=== PATIENT | male | born 1935 | race Caucasian/White ===

== ENCOUNTER 2018-04-05 19:09 | Inpatient (IN) | payer OTHER ==
[~2018-04-05] VITALS: Ht 177.8 cm; Wt 115.2 kg
[2018-04-05 19:10] VITALS: BP 124/75
[2018-04-05] MEDS ORDERED: COZAAR 50 MG TA50 M2 (19:23)
[2018-04-05] MEDS ORDERED: LASIX 40 MG TAB40 M2 (19:23)
[2018-04-05] MEDS ORDERED: LOPRESSOR100 M1 (19:23)
[2018-04-05] MEDS ORDERED: POTASSIUM20 PO (19:24)
[2018-04-05 19:45] LABS: ABSOLUTE BASOPHILS 0.1 thou/uL (0.0-0.2); ABSOLUTE EOSINOPHILS 0.2 thou/uL (0.0-0.7); ABSOLUTE LYMPHOCYTES 2.6 thou/uL (0.8-5.3); ABSOLUTE MONOCYTES 1.5 thou/uL (0.0-1.2); ABSOLUTE NEUTROPHILS 5.2 thou/uL (1.6-8.1); BASOPHILS 0.8 %; EOSINOPHILS 2.1 %; HEMATOCRIT 38.6 % (42.0-52.0); HEMOGLOBIN 12.9 gm/dL (14.0-18.0); LYMPHOCYTES 27.3 %; MCH 32.7 pg (26.0-34.0); MCHC 33.5 g/dL (28.0-37.0); MCV 97.8 fL (80.0-100.0); MONOCYTES 15.9 %; MPV 7.7 fl. (7.2-11.1); NUCLEATED RBCS 0 /100WBC; PLATELET COUNT* 238 thou/uL (150-400); POLYS 53.9 %; RBC 3.95 mil/uL (4.50-6.00); RDW-CV 15.4 % (10.5-14.5); WBC 9.6 thou/uL (4.0-11.0)
[2018-04-05 19:50] LABS: ANION GAP 12 mmol/L (7-16); BUN 28 mg/dL (7-18); CALCIUM 8.4 mg/dL (8.5-10.1); CHLORIDE 102 mmol/L (98-107); CO2 26 mmol/L (21-32); CREATININE 2.2 mg/dL (0.6-1.3); GLUCOSE 82 mg/dL (70-99); POTASSIUM 3.8 mmol/L (3.5-5.1); SODIUM 140 mmol/L (136-145)
[2018-04-05 20:01] LABS: ALBUMIN 3.1 g/dL (3.4-5.0); ALKALINE PHOSPHATASE 88 U/L (46-116); LIPASE 189 U/L (73-393); NT-PRO BRAIN NAT PEPTIDE 4473 pg/mL (<300); SGOT 29 U/L (15-37); SGPT 40 U/L (30-65); TOTAL BILIRUBIN 0.2 mg/dL (<0.1-1.0); TOTAL PROTEIN 6.3 g/dL (6.4-8.2); TROPONIN-I LEVEL <0.06 ng/mL (<0.06)
[2018-04-06] VITALS (7 sets, daily range): BP systolic 125–189; BP diastolic 56–99
[2018-04-06] MEDS ORDERED: DEMADEX20 MG PO (00:55)
[2018-04-06] MEDS ORDERED: GLIPIZIDE 10 MG10 MG PO (00:56)
[2018-04-06] MEDS ORDERED: CARDIZEM CD240 MG PO (00:57)
[2018-04-06] MEDS ORDERED: LANTUS100 UNIT/M SUBQ (00:59)
[2018-04-06 02:36] LABS: URINE BILIRUBIN NEGATIVE (Negative); URINE BLOOD NEGATIVE (Negative); URINE CLARITY CLEAR; URINE COLOR YELLOW; URINE GLUCOSE-RANDOM NEGATIVE (Negative); URINE KETONES NEGATIVE (Negative); URINE LEUKOCYTES-REFLEX NEGATIVE (Negative); URINE NITRITE-REFLEX NEGATIVE (Negative); URINE PROTEIN 3+ (Negative); URINE SPECIFIC GRAVITY 1.025 (1.005-1.030); URINE UROBILINOGEN 0.2 E.U./dl (0.2-1.0)
[2018-04-06 02:56] LABS: AMP/METHAMP Negative (Negative); BARBITURATES Negative (Negative); BENZODIAZEPINES POSITIVE (Negative); COCAINE Negative (Negative); METHADONE Negative (Negative); OPIATES Negative (Negative); PCP Negative (Negative); THC Negative (Negative)
[2018-04-06 03:52] LABS: HYALINE CASTS 4-10 Moderate /LPF (None Seen); MUCUS 0-3 Light strn/LPF (None Seen); SQUAMOUS 0-3 Few /LPF (0-3); URINE RBC None Seen /HPF (0-2); URINE WBC-REFLEX 0-5 Rare /HPF (0-5)
[2018-04-06 03:53] LABS: BACTERIA-REFLEX None Seen /HPF (None Seen); CRYSTALS None Seen /LPF (None Seen)
[2018-04-06 05:04] LABS: HEMOGLOBIN 13.1 gm/dL (14.0-18.0); MCH 32.4 pg (26.0-34.0); MCHC 32.8 g/dL (28.0-37.0); MPV 7.8 fl. (7.2-11.1); RBC 4.04 mil/uL (4.50-6.00); RDW-CV 15.4 % (10.5-14.5); WBC 7.4 thou/uL (4.0-11.0)
--- NOTE | 2018-04-06 05:07 | NUR ---
ASSUMED CARE AT 0030, ADMISSION CHARTED. PATIENT ALERT/ORIENTED X4, RESTING IN BED. PLACED ON TELE, AFIB. WEARING OXYGEN 2L/NC, SATS 95%. HOME CPAP PLACED ON PER RT. IVF INFUSING PER MAR. UP WITH ASSIST. VOIDING PER URINAL. REFUSING SCD'S. BED ALARM ON. CALL LIGHT WITHIN REACH, ENCOURAGED TO CALL FOR NEEDS.
[2018-04-06 05:14] LABS: ALBUMIN 2.9 g/dL (3.4-5.0); ALKALINE PHOSPHATASE 87 U/L (46-116); AMMONIA < 10 umol/L (11-32); ANION GAP 6 mmol/L (7-16); BUN 26 mg/dL (7-18); CHLORIDE 106 mmol/L (98-107); CO2 29 mmol/L (21-32); CREATININE 1.9 mg/dL (0.6-1.3); GLUCOSE 99 mg/dL (70-99); PHOSPHORUS* 4.2 mg/dL (2.5-4.9); SGOT 30 U/L (15-37); SGPT 37 U/L (30-65); SODIUM 141 mmol/L (136-145); TOTAL BILIRUBIN 0.2 mg/dL (<0.1-1.0)
[2018-04-06 05:17] LABS: POTASSIUM 4.8 mmol/L (3.5-5.1)
--- NOTE | 2018-04-06 08:00 | NUR ---
REPORT GIVEN TO ONCOMING NURSE. PATIENT RESTING IN BED. WILL MONITOR.
--- NOTE | 2018-04-06 09:40 | NUR ---
RECEIVED REPORT FROM EDUARDO AND ASSUMED CARE OF PT @ 0283.PT IS A/O,VSS,TRACING AFIB ON THE MONITOR.LUNG SOUNDS ARE CLEAR.LAST BM WAS YESTERDAY.IV LEFT WRIST PATENT WITH FLUIDS INFUSING PER ORDERS.CIWA SCREENING COMPLETED.PT IS CLAM AND COOPERATIVE WITH NO C/O PAIN AT TIME OF ASSESSMENT.PT IS UP WITH ONE ASSIST TO BATHROOM.PT LEFT RESTING BED WITH CALL LIGHT AND FALL PRECAUTIONS IN [place]. WILL CONTINUE TO MONITOR.PT WAITING FOR DIAGNOSTIV TESTING THIS AM.
--- NOTE | 2018-04-06 12:03 | EKG ---
[place] [address] ELECTROCARDIOGRAM REPORT Name: STEVENSON PENA Room: [address] ADM IN [facility].#: [id number] Admission: 04/05/18 Attend Phys: Araceli Warren Discharge: Date of : 35 Report #: [id number] THIS REPORT FOR: //name// [facility] ED Test Date: 2018-04-05 Test Time: 19:21:36 Pat Name: STEVENSON PENA Department: Room: [facility] Gender: M [employer] Usher: : 1935 Requested By: Neelam Stuart Order Number: [id number] MD: Horace Morgan Measurements Intervals [place] Rate: 67 P: OR: QRS: 37 QRSD: 131 T: 56 QT: 429 QTc: 453 Interpretive Statements Atrial fibrillation IVCD, consider atypical RBBB Anterior infarct, old No previous ECG available for comparison Electronically Signed On 04-06-2018 12:02:57 CDT by Horace Morgan [email or web address] <ELECTRONICALLY SIGNED> By: Horace Morgan MD, [facility] 04/06/18 1202 20 20 Horace Morgan MD, [facility] /EPI
[2018-04-06 13:08] LABS: T7 1.4 (1.2-4.9)
--- NOTE | 2018-04-06 15:49 | NUR ---
Pt is A&O. Resides in a RV with his . Normally independent. Sleeps with a cpap at night. No hx of HH or Snf. Goal is home at mt. Following.
--- NOTE | 2018-04-06 18:31 | NUR ---
VSS,CARDIAC MONITORING IN PLACE WITH NO CHANGES.PT REMAINS ON 2L O2 NC.NO C/O PAIN.IVF FLUIDS INFUSING PER ORDERS.CIWA SCREENINGS COMPLETED.PT PROGRESSING TOWARDS GOALS.INFORMED OF PLAN OF CARE AND COMMUNICATES UNDERSTANDING.HOURLY ROUNDING COMPLETED FOR PT SAFETY.CALL LIGHT AND FALL PRECAUTIONS IN PLACE.WILL CONTINUE TO MONITOR FOR DURATION OF SHIFT.
[2018-04-07] VITALS (7 sets, daily range): BP systolic 145–189; BP diastolic 58–84
--- NOTE | 2018-04-07 06:46 | NUR ---
PATIENT RESTED THROUGH THE NIGHT. UP WITH ASSIST TO BSC. DENIES PAIN OR NEEDS. CIWA CHARTED. BED ALARM ON. CALL LIGHT WITHIN REACH, ENCOURAGED TO CALL FOR NEEDS.
--- NOTE | 2018-04-07 08:30 | NUR ---
RECEIVED REPORT FROM EDUARDO AND ASSUMED CARE OF PT @ 5862.PT IS A/O,VSS,TRACING AFIB ON THE MONITOR.LUNG SOUNDS ARE CLEAR.LAST BM WAS YESTERDAY.PT IV LEFT FOREARM PATENT WITH FLUIDS INFUSING PER ORDERS.PT IS CALM AND COOPERATIVE WITH NO C/O PAIN AT TIME OF ASSESSMENT.PT IS UP WITH ONE ASSIST TO BSC.PT LEFT RESTING IN BED WITH CALL LIGHT AND FALL PRECAUTIONS IN PLACE.WILL CONTINUE TO MONITOR.
--- NOTE | 2018-04-07 16:50 | 2DMMODE ---
[place] [address] 2 D/M-MODE ECHOCARDIOGRAM Name: STEVENSON PENA Room: [address] IN [facility]#: [id number] Admission: 04/05/18 Attend Phys: Betito Jules Discharge: Date of : 35 Date of Service: 04/07/18 1650 Report #: [id number] THIS REPORT FOR: //name// APPROVED REPORT Study performed: 04/07/2018 14:59:00 EXAM: Comprehensive 2D, Doppler, and color-flow Echocardiogram Patient Location: In-Patient Room #: 220 Status: routine BSA: 2.31 HR: 64 bpm BP: 175/79 mmHg Rhythm: Atrial Fibrillation Other Information Study Quality: Good Indications COPD Atrial Fibrillation Dyspnea 2D Dimensions LVEF(%): 69.23 (>50%) IVSd: 13.01 (7-11mm) LVOT Diam: 22.05 (18-24mm) LVDd: 50.14 mm PWd: 11.63 (7-11mm) Ascending Ao: 32.56 (22-36mm) LVDs: 30.56 (25-40mm) Aortic Root: 33.52 mm De La Cruz's LVEF: 69.23 % Volumes Left Atrial Volume (Systole) LA ESV Index: 69.50 mL/m2 Aortic Valve AoV Peak Ben.: 1.57 m/s AO Peak Gr.: 9.87 mmHg LVOT Max P.76 mmHg AO Mean Gr.: 5.20 mmHg LVOT Mean P.24 mmHg LVOT Max V: 0.83 m/s AO V2 VTI: 31.91 cm LVOT Mean V: 0.50 m/s ROLY (VTI): 2.19 cm2 LVOT V1 VTI: 18.32 [place] [address] 2 D/M-MODE ECHOCARDIOGRAM Name: STEVENSON PENA Room: [address] IN .R.#: [id number] Admission: 04/05/18 Attend Phys: Betito Jules Discharge: Date of : 35 Date of Service: 04/07/18 1650 Report #: [id number] Mitral Valve MV Decel. Time: 173.48 ms MV PHT: 50.31 ms MVA (PHT): 4.37 cm2 TDI Medial E' Ben.: 0.11 m/s Lateral E' Ben.: 0.14 m/s Pulmonary Valve PV Peak Ben.: 0.74 m/s PV Peak Gr.: 2.21 mmHg Tricuspid Valve RAP Estimate: 5.00 mmHg TR Peak Gr.: 34.32 mmHg RVSP: 39.32 mmHg PA Pressure: 39.32 mmHg Left Ventricle The left ventricle is normal size. There is normal LV segmental wall motion. Mild concentric left ventricular hypertrophy. Left ventricular systolic function is normal. LVEF is 55-60%. This study is not technically sufficient to allow evaluation of the LV diastolic function due to atrial fibrillation. Right Ventricle The right ventricle is normal size. The right ventricular systolic function is normal. Atria Left atrium is moderately dilated. Right atrium is mildly dilated. Aortic Valve Mild aortic valve sclerosis. No aortic regurgitation is present. There is no aortic valvular stenosis. Mitral Valve The mitral valve is normal in structure. Mild mitral regurgitation. No evidence of mitral valve stenosis. Tricuspid Valve The tricuspid valve is normal in structure. Mild tricuspid regurgitation. Mild pulmonary hypertension. Pulmonic Valve The pulmonary valve is normal in [place] [address] 2 D/M-MODE ECHOCARDIOGRAM Name: STEVENSON PENA Room: [address] IN [facility]#: [id number] Admission: 04/05/18 Attend Phys: Betito Jules Discharge: Date of : 35 Date of Service: 04/07/18 1650 Report #: [id number] regurgitation. Great Vessels The aortic root is normal in size. IVC is normal in size and collapses with >50% inspiration Pericardium There is no pericardial effusion. <Conclusion> The left ventricle is normal size. Mild concentric left ventricular hypertrophy. Left ventricular systolic function is normal. LVEF is 55-60%. Left atrium is moderately dilated. Right atrium is mildly dilated. Mild aortic valve sclerosis. Mild mitral regurgitation. Mild tricuspid regurgitation. Mild pulmonary hypertension. <ELECTRONICALLY SIGNED> By: Gallito Edouard MD, FACC 04/07/181649 49 49 Gallito Edouard MD, FACC /INF
--- NOTE | 2018-04-07 18:08 | NUR ---
VSS,CARDIAC MONITORING IN PLACE WITH NO CHANGES.PT REMAINS ON 2L O2 NC NEEDED.24 HOUR URINE CALLECTION IN PROGRESS.NO C/O PAIN.IVF INFUSING PER ORDERS.PT TO BE NPO AT MIDNIGHT FOR TESTING IN AM.PT INFORMED OF PLAN OF CARE AND COMMUNICATES UNDERSTANDING.PT REFUSED TO WORK WITH PHYSICAL THERAPY THIS AFTERNOON.PT IS UP WITH ONE ASSIST.HOURLY ROUNDING COMPLETED FOR PT SAFETY.CALL LIGHT AND FALL PRECAUTIONS IN PLACE.WILL CONTINUE TO MONITOR FOR DURATION OF SHIFT.
[2018-04-08 02:07] LABS: GLYCOHEMOGLOBIN (HGB A1C) 5.6 % (4.8-5.6)
[2018-04-08 03:42] VITALS: BP 151/75
--- NOTE | 2018-04-08 06:45 | NUR ---
PT IS ABLE TO COMMUNICATE HIS NEEDS TO STAFF WITH ONLY MINOR DIFFICULTY; HE IS [place] WHEN HIS HEARING AIDS ARE NOT IN. HE HAS DENIED THE NEED FOR PAIN MEDICATION UP TO THIS TIME. HE HAS BEEN NPO, EXCEPT FOR MEDS WITH SIPS OF WATER, FOR A STRESS TEST LATER TODAY. 24 HOUR URINE COLLECTION CURRENTLY UNDERWAY TO END AT 14:10 TODAY 04/08.
[2018-04-08 08:05] VITALS: BP 159/72
--- NOTE | 2018-04-08 08:05 | NUR ---
RECEIVED REPORT FROM SAMEER AND ASSUMED CARE OF PT @ 2677.PT IS A/O,VSS,TRACING AFIB ON THE MONITOR.LUNG SOUNDS ARE CLEAR.LAST BM WAS TODAY.IV PATENT WITH FLUIDS INFUSING PER ORDERS.PT REMAINS NPO STATUS FOR STRESS TEST.PT IS CALM AND COOPERATIVE WITH NO C/O PAIN.PT IS UP WITH ONE ASSIST.PT LEFT RESTING IN BED WITH CALL LIGHT AND FALL PRECAUTIONS IN PLACE. IV REMOVED DUE TO INFILTRATION.NEW IV INSERTED IN LEFT AC.STRESS TEST COMPLETED.
[2018-04-08 12:10] VITALS: BP 152/57
[2018-04-08] MEDS ORDERED: THIAMINE HCL100 MG PO (12:47)
[2018-04-08] MEDS ORDERED: KPN1 EACH PO (12:48)
[2018-04-08] MEDS ORDERED: CLONIDINE0.1 PO (12:49)
--- NOTE | 2018-04-08 13:28 | NUR ---
Pt discharging to home today. Pt declined HH stating "I will do all of that once I get back home to [facility]." Walker order faxed to Leticia at [facility], lissy to be delivered to the room. will transport
[2018-04-08 14:06] VITALS: BP 152/57
[2018-04-08 15:27] VITALS: BP 155/61
--- NOTE | 2018-04-08 16:35 | CARDNUC ---
[place] [address] CARDIAC NUCLEAR IMAGING REPORT Name: STEVENSON PENA Room: [address] IN [facility]#: [id number] Admission: 04/05/18 Attend Phys: Betito Jules Discharge: Date of : 35 Date of Service: 04/08/18 1635 Report #: [id number] THIS REPORT FOR: //name// APPROVED REPORT Imaging Protocol: Stress Tc-99m/Rest Tc-99m 2 days Study performed: 04/07/2018 17:49:00 Indication: Atrial Fibrillation, Dyspnea Patient Location: In-Patient Room #: 220 Stress Tech: Radha Perez Stress Nurse: Debbi Christianson RN NM Tech:LATASHA Read Ht: 5 ft 10 in Wt: 254 lbs BSA: 2.31 m2 BMI: 36.44 Medical History Medical History: Diabetes, Atrial Fibrillation, HTN, Obesity , CKD, CHF Medications: Metoprolol, Clonidine, Cardizem, Cozaar Allergies: No known drug allergies Cardiac Risk Factors: Age, DM, FHX of CAD, SOB, HTN, CKD, AFIB Exercise History: Sedentary Physical Disabilities: Legs. Feet Meds Held (24 hrs): Metoprolol Pharmacologic Stress Pharmacologic stress test was performed by injecting Regadenoson 0.4 mg IV push over 10-15 seconds immediately followed by the intravenous injection of 34.5 mCi of Tc-99m Sestamibi. Time of stress injection: 1115 Date: 04/08/2018 Time of stress imagin Administration Route: IV Gated Stress SPECT was performed 40 minutes after stress injection. The images were gated to evaluate regional wall motion and calculate left ventricular ejection fraction. Prone imaging was performed. Stress Test Details Stress Test: Pharmacologic stress testing performed using 0.4 mg of regadenoson per 5 mL given IV over 10 [place] [address] CARDIAC NUCLEAR IMAGING REPORT Name: STEVENSON PENA Room: [address]#: [id number] Admission: 04/05/18 Attend Phys: Betito Jules Discharge: Date of : 35 Date of Service: 04/08/18 1635 Report #: [id number] Reason for pharmacologic stress test: physical limitation. HR Max Heart Rate (APMHR): 138 bpm Resting HR: 55 bpm Target HR (85% APMHR): 117 bpm Max HR Achieved: 57 bpm % of APMHR: 41 Recovery HR: 65 bpm BP Resting BP: 143/70 mmHg Recovery BP: 143/64 mmHg ECG Resting ECG: Sinus Rhythm, normal EKG Stress ECG: Sinus Rhythm, normal EKG ST Change: None Arrhythmia: None Recovery ECG: Sinus Rhythm, normal EKG Recovery ST Change: None Recovery Arrhythmia: None Clinical Reason for Termination: Completed protocol Stress Symptoms: Dyspnea Exercise duration: 0 min 0 sec Exercise capacity: 1.0 METs The patient tolerated Lexiscan infusion without significant symptoms. Nurse Comments Physical limitations required a sitting Lexiscan. Patient tolerated test well. Stress ECG Conclusion The baseline 12-lead EKG shows sinus rhythm without significant ST or T wave abnormality. EKGs obtained during and post Lexiscan infusion show sinus rhythm with no significant ST or T wave changes when compared to baseline. There were no significant stress-induced arrhythmias. Study Quality Study: Good Artifact: Mild Diaphragmatic artifact Study Data Post stress, [place] [address] CARDIAC NUCLEAR IMAGING REPORT Name: STEVENSON PENA Room: [address]#: [id number] Admission: 04/05/18 Attend Phys: Betito Jules Discharge: Date of : 35 Date of Service: 04/08/18 1635 Report #: [id number] 53%.. Perfusion Post stress perfusion images obtained in the supine position show some photopenia of the inferior wall that resolves completely with post stress prone imaging. Post stress prone imaging shows uniform uptake of the radioisotope throughout the myocardium. Wall Motion Normal left ventricular wall motion. Nuclear Conclusion ECG Findings: negative for ischemia Clinical Findings: negative for ischemia Nuclear Findings: negative for ischemia Exercise Capacity: not assessed Left Ventricular Function: normal Risk Study: low Myocardial perfusion images show no defect to suggest infarct or ischemia. Left ventricular systolic function appears normal on gated studies. This is a low risk study. <Conclusion> The baseline 12-lead EKG shows sinus rhythm without significant ST or T wave abnormality. EKGs obtained during and post Lexiscan infusion show sinus rhythm with no significant ST or T wave changes when compared to baseline. There were no significant stress-induced arrhythmias. <ELECTRONICALLY SIGNED> By: Gallito Edouard MD, FACC 04/08/18 1635 1635 1635 Gallito Edouard MD, FACC /INF
--- NOTE | 2018-04-08 17:03 | NUR ---
PT STRESS TEST WAS NEGATIVE.PT OK FOR DISCHARGE.PAPERWORK COMPLETED AND GIVEN TO PT.SCRIPTS GIVEN WITH EDUCATION.IV REMOVED.HEART MONITOR REMOVED AND RETURNED TO NURSING STATION.PT REFUSED TO HAVE HOME HEALTH SET UP BUT ACCEPTED TO USE A WALKER.ALL PERSONAL BELONGINGS PACKED AND TAKEN WITH PT.WHEELED OUT BY NURSING STAFF TO PERSONAL VEHICLE.
[2018-04-08 22:13] LABS: GLOBULIN TOTAL 2.8 g/dL (2.2-3.9); M-SPIKE Not Observed g/dL (Not Observed)
[2018-04-11 16:07] LABS: URINE PROTEIN 5402 mg/24 hr (30-150); URINE PROTEIN (MG/DL) 284.3 mg/dL (Not Estab.)
--- NOTE | 2018-04-11 17:33 | EEG ---
[address] [address] EEG STUDY REPORT Name: STEVENSON PENA Room: [address] IN .#: [id number] Admission: 04/05/18 Attend Phys: Araceli Warren Discharge: 04/08/18 Date of : 35 Report #: [id number] THIS REPORT FOR: //name// CC: RUSS RUSSELL Physician staff Betito Jules DATE OF SERVICE: 04/06/2018 This patient is having episodes where he loses all his friends. EEG is being done to evaluate the possibility of seizure. The patient does drink alcohol. The patient's EEG was done by placing the electrodes by standard 10-20 system of electrode placement. Both referential and sequential montages were used for recording. Background activity in this patient's EEG is about 9 Hz and 30 microvolts. It is a symmetrical activity. Photic stimulation was unremarkable. The patient went to sleep that was associated with bilaterally symmetrical sleep spindle and vertex sharp waves. Throughout the record, no active epileptiform activity was noticed. IMPRESSION: This patient's EEG is unremarkable. Thank you very much for this referral. <ELECTRONICALLY SIGNED> By: Shaun Mckeon MD 04/11/18 1733 1109 [id number] Mckeon MD /nt
--- NOTE | 2018-04-11 17:33 | CON ---
[address] [address] CONSULTATION Name: STEVENSON PENA Room: [address] IN .R.#: [id number] Admission: 04/05/18 Attend Phys: Araceli Warren Discharge: 04/08/18 Date of : 35 Report #: [id number] THIS REPORT FOR: //name// CC: RUSS RUSSELL Physician staff Betiot Jules DATE OF SERVICE: 04/06/2018 HISTORY OF PRESENT ILLNESS: This is an 82-year-old male patient who was evaluated by me for the leg weakness. The patient provides somewhat different history to me than he provided to Emergency Room physician whose records were reviewed. He indicates he is gradually becoming weaker in the lower extremities for about 4 months. He had some dizziness associated with that. He had 2 falls associated with this. Weakness started spontaneously without any trauma. He is not complaining of much bladder problem, but he is having diarrhea. He is a diabetic, but he said he keeps his A1c under control reasonably well. REVIEW OF SYSTEMS: Positive for hypertension, diabetes, COPD. He used to smoke, but does not smoke anymore. His EKG does indicate that he has atrial fibrillation. I carried out the 14-point review of system in this patient and it is mainly positive for diabetes and hypertension. He denies he is having any visual problem. He has baseline problem with hearing, not having any active chest pain or any severe respiratory difficulty. He is not complaining of any musculoskeletal, constitutional, dermatological, hematological, psychiatric, throat, allergic symptom, which is new. He is having diarrhea, but not much bladder disturbances. PAST MEDICAL HISTORY: Positive for diabetes. FAMILY HISTORY: Negative for early age stroke. SOCIAL HISTORY: He drinks alcohol daily. PHYSICAL EXAMINATION: Indicates the patient is alert, responsive, able to follow simple command. His memory and fund of knowledge is his baseline. Speech is okay. Cranial nerve examination 2-12 appear noncontributory. The patient's strength in all 4 extremities is preserved. In fact, even in the lower extremities, it looks preserved. His position sense is intact, but his reflexes are absent. His tone looks unremarkable. His icjyck-gv-ewmk looks unremarkable. I could not look at the fundus very well. This patient has no thyroid mass. He is reasonably well-developed individual who does not have any dysmorphic features of eyes, ears and face. His pulses are palpable. He has no edema, cyanosis or jaundice. His blood pressure is 189/99, pulse is 100, temperature is 98.1. [place] [address] CONSULTATION Name: STEVENSON PENA Room: [address] IN ..#: [id number] Admission: 04/05/18 Attend Phys: Araceli Warren Discharge: 04/08/18 Date of : 35 Report #: [id number] LABORATORY DATA: Indicates a white count of 7.4. He does have a GFR of only 34. His TSH is slightly elevated. Vitamin B12 is somewhat on the lower side at 259. He did have an MRI of the brain, which showed no acute stroke. His MRA of the [place] of [place] is mostly unremarkable. 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 Neuropathy may be secondary to diabetes or alcoholism. We will exclude some other cause. I will ask physical therapy to ambulate and see how he does with that. He is already on thiamine. It is unlikely that it was anything neurological, especially because the MRI and MRA looks unremarkable. He needs an EMG, but we cannot do it in the hospital as we do not have the machine. We will see how he does with the physical therapy and depending upon that, we may have to work up his spine either as an inpatient or as an outpatient. RECOMMENDATIONS: 1. PT evaluation. 2. Neuropathy panel. 3. He must stop drinking alcohol. 4. We will see how he does with PT, OT and may do some more spine workup starting with lumbar and thoracic spine MRI and doing further workup as indicated later on. All of it was discussed with the patient and he wants to follow up plan. <ELECTRONICALLY SIGNED> By: Shaun Mckeon MD 04/11/18 1733 1611 [id number] Mckeon MD /nt
[2018-04-11 19:11] LABS: ANA INTERPRETATION Negative (())
== END 2018-04-08 17:27 | disposition home or self-care (01) | DRG 73 ==
LOC: M.ERS 19:09 → M.TBA-ER 22:52 → M.2W 22:52
PROVIDERS: Emergency Medicine; ADMIT Internal Medicine
DX: G62.1 Alcoholic polyneuropathy (principal); N17.0 Acute kidney failure with tubular necrosis; E44.1 Mild protein-calorie malnutrition; I13.0 Hypertensive heart and chronic kidney disease with heart failure and stage 1 through stage 4 chronic kidney disease, or unspecified chronic kidney disease; I50.32 Chronic diastolic (congestive) heart failure; E11.40 Type 2 diabetes mellitus with diabetic neuropathy, unspecified; J44.9 Chronic obstructive pulmonary disease, unspecified; I48.2 Chronic atrial fibrillation; R29.6 Repeated falls; F10.20 Alcohol dependence, uncomplicated; E03.9 Hypothyroidism, unspecified; E11.22 Type 2 diabetes mellitus with diabetic chronic kidney disease; N18.3 Chronic kidney disease, stage 3 (moderate); D64.9 Anemia, unspecified; E83.51 Hypocalcemia; E53.8 Deficiency of other specified B group vitamins; Z68.36 Body mass index [BMI] 36.0-36.9, adult; Z79.4 Long term (current) use of insulin; Z79.899 Other long term (current) drug therapy